=== PATIENT | female | born 1985 | race Two or more races ===

== ENCOUNTER 2018-03-29 13:31 | Emergency (ER) | payer SELFPAY ==
[2018-03-29] MEDS: IV NORMAL SALINE 1000ML BAG 1,000 ML IV (13:50)
[2018-03-29] MEDS: ONDANSETRON PF 4 MG/2 ML VIAL. IV (13:50)
[2018-03-29] MEDS: fentaNYL PF VIAL 100 MCG/2 ML VIAL IV (13:50)
[2018-03-29 13:53] LABS: ADD MAN DIFF? NO
[2018-03-29 13:54] LABS: URINE HCG POC HCG NEGATIVE (Negative)
[2018-03-29 13:58] LABS: BASO % 0 % (0-3); EOS % 0 % (0-3); HEMATOCRIT 37.9 % (36.0-47.0); LYMPH # 1.4 x10^3/uL (1.0-4.8); LYMPH % 12 % (24-48); MEAN CORPUSCULAR HEMOGLOBIN 29 pg (25-35); MEAN CORPUSCULAR HGB CONC 34 g/dL (31-37); MEAN CORPUSCULAR VOLUME 86 fL (79-100); MONO # 0.5 x10^3/uL (0.0-1.1); MONO % 4 % (0-9); NEUT # 10.1 x10^3uL (1.8-7.7); NEUT % 84 % (31-73); PLATELET COUNT 203 x10^3/uL (140-400); RED BLOOD COUNT 4.42 x10^6/uL (3.50-5.40); RED CELL DISTRIBUTION WIDTH 13.9 % (11.5-14.5); WHITE BLOOD COUNT 12.1 x10^3/uL (4.0-11.0)
[2018-03-29] MEDS ORDERED: CONTRAST GIVEN. MC (14:00)
[2018-03-29] MEDS ORDERED: IOHEXOL 300 MG/ML 100ML VIAL. IV (14:00)
[2018-03-29 14:12] LABS: ANION GAP 11 (6-14); BLOOD UREA NITROGEN 10 mg/dL (7-20); BUN/CREATININE RATIO 14 (6-20); CALCIUM 8.7 mg/dL (8.5-10.1); CARBON DIOXIDE 24 mmol/L (21-32); CHLORIDE 104 mmol/L (98-107); CREATININE 0.7 mg/dL (0.6-1.0); GFR 95.8; GLUCOSE 123 mg/dL (70-99); POTASSIUM 3.6 mmol/L (3.5-5.1); SODIUM 139 mmol/L (136-145)
[2018-03-29 14:13] LABS: ALK PHOS 64 U/L (46-116); ALT (SGPT) 19 U/L (14-59); AST (SGOT) 12 U/L (15-37); C-REACTIVE PROTEIN 2.4 mg/L (0-3.3); LIPASE 113 U/L (73-393); TOTAL BILIRUBIN 0.3 mg/dL (0.2-1.0); TOTAL PROTEIN 7.9 g/dL (6.4-8.2)
[2018-03-29 14:15] LABS: BILIRUBIN,URINE NEGATIVE (NEG); CLARITY,URINE CLEAR; COLOR,URINE YELLOW; GLUCOSE,URINE NEGATIVE (NEG); NITRITE,URINE NEGATIVE (NEG); PH,URINE 6.5; PROTEIN,URINE NEGATIVE (NEG-TRACE); RBC,URINE 0 /HPF (0-2); UROBILINOGEN,URINE 0.2 mg/dL (0.2 mg/dL)
[2018-03-29 14:16] LABS: BACTERIA,URINE 0 /HPF (0-FEW); SQUAMOUS EPITHELIAL CELL,UR OCC /LPF; WBC,URINE 0 /HPF (0-4)
[2018-03-29] MEDS: IOHEXOL 300 MG/ML 100ML VIAL. IV (14:32)
== END 2018-03-29 15:40 | disposition home or self-care (01) ==
LOC: ER 13:31
DX: D27.0 Benign neoplasm of right ovary (principal); R10.33 Periumbilical pain; Z88.5 Allergy status to narcotic agent
CPT/HCPCS: 36415; 74177; 80053; 81001; 81025; 83690; 85025; 86140; 96361; 96374; 96375; 99285-25; J2405; J3010; J7030; Q9967

== ENCOUNTER 2018-05-02 05:41 | Observation (INO) | payer SELFPAY ==
--- NOTE | 2018-05-01 15:25 | PREOP HP ---
DATE OF SERVICE: CHIEF COMPLAINT AND HISTORY OF PRESENT ILLNESS: This patient is a 32-year-old Nepali lady who is a 5, para 5 and she went to the hospital for abdominal pain and she was seen in the ER because of the abdominal pelvic pain and she did have a sonogram, which revealed a cyst in the ovary, which was complex and the patient also has periods, which are kind of heavier than before and sometimes, she has spotting and she does have irregular menstrual periods at times and she was referred because of the ovarian cyst and at the present time, she is scheduled for a laparotomy, left side salpingo-oophorectomy after she was seen in the office. ALLERGIES: SHE IS ALLERGIC TO MORPHINE. PAST MEDICAL HISTORY: Reveals no history of any other surgery. FAMILY HISTORY: Reveals no history of any cancer. She does have 3 sisters and no brothers. REVIEW OF SYSTEMS: Essentially negative. PHYSICAL EXAMINATION: GENERAL: The patient is obese. VITAL SIGNS: Weight 212 pounds, blood pressure 120/80. HEAD, EYES, EARS, NOSE, THROAT: Within normal limits. LUNGS: Clear. HEART: Sounds regular sinus rhythm. ABDOMEN: Feels soft. There is tenderness in the left adnexal area. PELVIC: Shows external genitalia being normal. Cervical os is closed. On bimanual exam, there is a mass palpable in the left side, which is tender to palpate. No vaginal bleeding noted at the time of the examination. EXTREMITIES: No edema of feet. 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 PLAN: Laparotomy, left side salpingo-oophorectomy. The details of the surgery, the risks, complications have been explained to the patient and the patient is willing for the operation at the present time. BRENDA ARMAS MD DR: CAIO/deidra JOB#: [id number] / [id number]
[2018-05-02] VITALS (8 sets, daily range): BP systolic 105–162; BP diastolic 60–80
[~2018-05-02] VITALS: Ht 165.1 cm; Wt 96.2 kg
[~2018-05-02 05:41] MED LIST: TRAM50TA PO
[2018-05-02 06:44] LABS: U PREG PATIENT NEGATIVE (NEG)
[2018-05-02] MEDS ORDERED: PANT20TA2 PO (06:46)
[2018-05-02 06:53] LABS: BASO % 0 % (0-3); EOS # 0.2 x10^3/uL (0.0-0.7); EOS % 3 % (0-3); HEMATOCRIT 36.4 % (36.0-47.0); HEMOGLOBIN 12.6 g/dL (12.0-15.5); LYMPH # 3.3 x10^3/uL (1.0-4.8); LYMPH % 46 % (24-48); MEAN CORPUSCULAR HEMOGLOBIN 29 pg (25-35); MEAN CORPUSCULAR HGB CONC 35 g/dL (31-37); MEAN CORPUSCULAR VOLUME 85 fL (79-100); MONO # 0.7 x10^3/uL (0.0-1.1); MONO % 9 % (0-9); NEUT # 3.1 x10^3uL (1.8-7.7); NEUT % 42 % (31-73); PLATELET COUNT 203 x10^3/uL (140-400); RED BLOOD COUNT 4.29 x10^6/uL (3.50-5.40); RED CELL DISTRIBUTION WIDTH 13.6 % (11.5-14.5); WHITE BLOOD COUNT 7.3 x10^3/uL (4.0-11.0)
[2018-05-02] MEDS ORDERED: SUCCINYLCHOLINE 200 MG/10 ML VIAL. ONE (06:59)
[2018-05-02] MEDS ORDERED: fentaNYL PF VIAL 100 MCG/2 ML VIAL ONE ×4 (06:59→10:31)
[2018-05-02] MEDS ORDERED: ROCURONIUM 50 MG/5 ML VIAL. ONE (06:59)
[2018-05-02] MEDS ORDERED: PROPOFOL 20 ML IV ONE (06:59)
[2018-05-02] MEDS ORDERED: LIDOCAINE 2% PF Vial for OR 5 ML VIAL. ONE (06:59)
[2018-05-02] MEDS ORDERED: IV RINGERS,LACTATED 1000ML 1,000 ML IV SCH (07:00)
[2018-05-02] MEDS ORDERED: ONDANSETRON PF 4 MG/2 ML VIAL. IV PRN ×2 (07:00→08:45)
[2018-05-02] MEDS ORDERED: PROCHLORPERAZINE 10 MG/2 ML VIAL. IV PRN (07:00)
[2018-05-02] MEDS ORDERED: LIDOCAINE 1% PF 2 ML VIAL. ID PRN (07:00)
[2018-05-02] MEDS ORDERED: fentaNYL PF VIAL 100 MCG/2 ML VIAL IV PRN (07:00)
[2018-05-02] MEDS ORDERED: DESFLURANE 61 TO 120 MINUTES IH ONE (07:46)
[2018-05-02] MEDS ORDERED: DEXAMETHASONE SOD PHOS 20 MG/5 ML VIAL. ONE (07:46)
[2018-05-02] MEDS ORDERED: NEOSTIGMINE METHYLSULFATE 5 MG/5 ML SYRINGE. ONE (08:04)
[2018-05-02] MEDS ORDERED: GLYCOPYRROLATE 1 MG/5 ML VIAL. ONE (08:04)
[2018-05-02] MEDS ORDERED: ONDANSETRON PF 4 MG/2 ML VIAL. ONE (08:04)
[2018-05-02] MEDS ORDERED: ePHEDrine PF IN SALINE 50 MG/5 ML DISP.SYRIN IV ONE (08:08)
[2018-05-02] MEDS ORDERED: ONDANSETRON PF 4 MG/2 ML VIAL. IV ONE (08:45)
[2018-05-02] MEDS ORDERED: IBUPROFEN 800 MG TABLET. PO PRN (08:45)
[2018-05-02] MEDS ORDERED: traMADol 50 MG TABLET PO PRN (08:45)
--- NOTE | 2018-05-02 08:45 | PDOC ---
GENERAL General: 32 yrs old scheduled for Laparotomy Left side Salpingoophorectomy. For Left Adnexal Mass and Pelvic pain. VITAL SIGNS Vital Signs: Vital Signs Date Time Temp Pulse Resp B/P (MAP) Pulse Ox O2 Delivery O2 Flow Rate FiO2 05/02/18 06:35 98.9 62 18 109/64 100 Room Air 98.9 ALLERGIES Allergies: Allergies Coded Allergies Type Severity Reaction Last Updated Verified morphine Allergy Intermediate rash 05/02/18 No MEDS Medications: Current Medications Medications (Trade) Dose Ordered Sig/Katrin Start Time Stop Time Status Last Admin Dose Admin Cefazolin Sodium/ Dextrose 50 ml @ 100 mls/hr 1X ONCE 05/02/18 06:00 05/02/18 06:29 DC 05/02/18 07:50 100 MLS/HR Desflurane (Suprane) 60 ml STK-MED ONCE 05/02/18 07:46 05/02/18 07:47 DC Dexamethasone Sodium Phosphate (Decadron) 20 mg STK-MED ONCE 05/02/18 07:46 05/02/18 07:47 DC Ephedrine Sulfate (ePHEDrine PF IN SALINE SYRINGE) 50 mg STK-MED ONCE 05/02/18 08:08 05/02/18 08:09 DC Fentanyl Citrate (Fentanyl 2ml Vial) 100 mcg STK-MED ONCE 05/02/18 06:59 05/02/18 07:00 DC Glycopyrrolate (Robinul) 1 mg STK-MED ONCE 05/02/18 08:04 05/02/18 08:05 DC Lidocaine HCl (Lidocaine Pf 2% Vial) 5 ml STK-MED ONCE 05/02/18 06:59 05/02/18 07:00 DC Lidocaine HCl (Xylocaine-Mpf 1% Vial) 2 ml PRN 1X PRN 05/02/18 07:00 05/03/18 06:59 Neostigmine Methylsulfate (Neostigmine Methylsulfate) 5 mg STK-MED ONCE 05/02/18 08:04 05/02/18 08:05 DC Ondansetron HCl (Zofran) 4 mg STK-MED ONCE 05/02/18 08:04 05/02/18 08:05 DC Prochlorperazine Edisylate (Compazine) 5 mg PACU PRN PRN 05/02/18 07:00 05/03/18 06:59 Propofol 20 ml @ As Directed STK-MED ONCE 05/02/18 06:59 05/02/18 07:00 DC Ringer's Solution 1,000 ml @ 30 mls/hr Q24H 05/02/18 07:00 05/02/18 18:59 05/02/18 06:43 30 MLS/HR Rocuronium [place] (Zemuron) 50 mg STK-MED ONCE 05/02/18 06:59 05/02/18 07:00 DC Succinylcholine Chloride (Anectine) 200 mg STK-MED ONCE 05/02/18 06:59 05/02/18 07:00 DC LAB Lab: Laboratory Tests Test 05/02/18 06:15 05/02/18 06:30 Urine Test Negative (NEG) White Blood Count 7.3 x10^3/uL (4.0-11.0) Red Blood Count 4.29 x10^6/uL (3.50-5.40) Hemoglobin 12.6 g/dL (12.0-15.5) Hematocrit 36.4 % (36.0-47.0) Mean Corpuscular Volume 85 fL (79-100) Mean Corpuscular Hemoglobin 29 pg (25-35) Mean Corpuscular Hemoglobin Concent 35 g/dL (31-37) Red Cell Distribution Width 13.6 % (11.5-14.5) Platelet Count 203 x10^3/uL (140-400) Neutrophils (%) (Auto) 42 % (31-73) Lymphocytes (%) (Auto) 46 % (24-48) Monocytes (%) (Auto) 9 % (0-9) Eosinophils (%) (Auto) 3 % (0-3) Basophils (%) (Auto) 0 % (0-3) Neutrophils # (Auto) 3.1 x10^3uL (1.8-7.7) Lymphocytes # (Auto) 3.3 x10^3/uL (1.0-4.8) Monocytes # (Auto) 0.7 x10^3/uL (0.0-1.1) Eosinophils # (Auto) 0.2 x10^3/uL (0.0-0.7) Basophils # (Auto) 0.0 x10^3/uL (0.0-0.2) ASSESSMENT & PLAN A&P Laparotomy and Left side Salpingoophorectomy. EBL 30cc. Pathologist has confirmed it is Left side Dermoid Cyst. BRENDA ARMAS MD May 02, 2018 08:45
[2018-05-02] MEDS ORDERED: PROCHLORPERAZINE 10 MG/2 ML VIAL. ONE (08:49)
[2018-05-02] MEDS: fentaNYL PF VIAL 100 MCG/2 ML VIAL IV PRN ×4 (08:54→09:48)
--- NOTE | 2018-05-02 09:12 | OP ---
DATE OF SURGERY: PREOPERATIVE DIAGNOSES: Left adnexal mass, pelvic pain, possible dermoid cyst of the ovary. POSTOPERATIVE DIAGNOSIS: Left side dermoid cyst of the ovary. OPERATION PERFORMED: Laparotomy, left side salpingo-oophorectomy. OPERATIVE PROCEDURE: The patient was taken to the operating room. Under general anesthesia, she was placed in a dorsal supine position. Womack catheter introduced in the bladder for continuous bladder drainage. Lower abdomen is prepped and draped in the usual manner. Pfannenstiel incision was made, abdomen opened in layers. Visualization of pelvic structures revealed slightly enlarged uterus. The right tube and ovary appears normal. The left side ovary is large, cystic and this was lifted out of the pelvis and the mesosalpinx as well as the broad ligament was doubly ligated and the left tube and ovary was removed and was given to the pathologist for visualization of the cyst and the pedicles on the left side was doubly ligated with 0 chromic catgut sutures without any problem and after this, there was no oozing or bleeding. The right tube and ovary appears normal and the abdomen closed in layers using continuous 0 chromic catgut sutures for the peritoneum, the muscle, the fascia. 3-0 plain continuous sutures applied for subcutaneous tissue, 3-0 Vicryl subcutaneous sutures were placed, a pressure dressing was given. The patient was sent to the recovery room in good condition. No complications encountered at time of the procedure. Estimated blood loss about 30 mL. Postoperative condition is stable. The pathologist did confirm it is a left side dermoid cyst of the left ovary. BRENDA ARMAS MD DR: CAIO/deidra JOB#: [id number] / [id number]
[2018-05-02] MEDS ORDERED: fentaNYL PF VIAL 100 MCG/2 ML VIAL IV ONE (10:45)
[2018-05-02] MEDS: IV NORMAL SALINE 1000ML BAG 1,000 ML IV SCH ×2 (11:15→18:20)
[2018-05-02] MEDS: KETOROLAC 30 MG/ML VIAL. IV PRN ×2 (11:23→19:43)
[2018-05-03] MEDS: IV NORMAL SALINE 1000ML BAG 1,000 ML IV SCH (01:59)
[2018-05-03 06:21] VITALS: BP 114/60
--- NOTE | 2018-05-03 07:41 | PDOC ---
GENERAL General: Patient feeling better. Likes to go home. VITAL SIGNS Vital Signs: Vital Signs Date Time Temp Pulse Resp B/P (MAP) Pulse Ox O2 Delivery O2 Flow Rate FiO2 05/03/18 06:21 98.1 63 16 114/60 (78) 96 Room Air 98.1 05/02/18 18:19 2.0 I & O I & O Intake and Output 05/03/18 07:00 Intake Total 2510 ml Output Total 4150 ml Balance -1640 ml Intake Oral 610 ml IV Total 1900 ml Output Urine Total 4150 ml ALLERGIES Allergies: Allergies Coded Allergies Type Severity Reaction Last Updated Verified morphine Allergy Intermediate rash 05/02/18 No MEDS Medications: Current Medications Medications (Trade) Dose Ordered Sig/Katrin Start Time Stop Time Status Last Admin Dose Admin Cefazolin Sodium/ Dextrose 50 ml @ 100 mls/hr 1X ONCE 05/02/18 06:00 05/02/18 06:29 DC 05/02/18 07:50 100 MLS/HR Desflurane (Suprane) 60 ml STK-MED ONCE 05/02/18 07:46 05/02/18 07:47 DC Dexamethasone Sodium Phosphate (Decadron) 20 mg STK-MED ONCE 05/02/18 07:46 05/02/18 07:47 DC Ephedrine Sulfate (ePHEDrine PF IN SALINE SYRINGE) 50 mg STK-MED ONCE 05/02/18 08:08 05/02/18 08:09 DC Fentanyl Citrate (Fentanyl 2ml Vial) 50 mcg 1X ONCE 05/02/18 10:45 05/02/18 10:46 DC 05/02/18 10:34 50 MCG Glycopyrrolate (Robinul) 1 mg STK-MED ONCE 05/02/18 08:04 05/02/18 08:05 DC Ibuprofen (Motrin) 800 mg PRN Q6HRS PRN 05/02/18 08:45 Ketorolac Tromethamine (Toradol) 30 mg PRN Q6HRS PRN 05/02/18 11:15 05/07/18 11:14 05/02/18 19:43 30 MG Lidocaine HCl (Lidocaine Pf 2% Vial) 5 ml STK-MED ONCE 05/02/18 06:59 05/02/18 07:00 DC Lidocaine HCl (Xylocaine-Mpf 1% Vial) 2 ml PRN 1X PRN 05/02/18 07:00 05/03/18 06:59 DC Neostigmine Methylsulfate (Neostigmine Methylsulfate) 5 mg STK-MED ONCE 05/02/18 08:04 05/02/18 08:05 DC Ondansetron HCl (Zofran) 4 mg PRN Q6HRS PRN 05/02/18 08:45 Prochlorperazine Edisylate (Compazine) 10 mg STK-MED ONCE 05/02/18 08:49 05/02/18 08:50 DC Propofol 20 ml @ As Directed STK-MED ONCE 05/02/18 06:59 05/02/18 07:00 DC Ringer's Solution 1,000 ml @ 30 mls/hr Q24H 05/02/18 07:00 05/02/18 18:59 DC 05/02/18 06:43 30 MLS/HR Rocuronium [place] (Zemuron) 50 mg STK-MED ONCE 05/02/18 06:59 05/02/18 07:00 DC Sodium Chloride 1,000 ml @ 125 mls/hr Q8H 05/02/18 11:15 05/03/18 01:59 125 MLS/HR Succinylcholine Chloride (Anectine) 200 mg STK-MED ONCE 05/02/18 06:59 05/02/18 07:00 DC Tramadol HCl (Ultram) 50 mg PRN Q6HRS PRN 05/02/18 08:45 05/02/18 18:19 50 MG ASSESSMENT & PLAN A&P Abdomen feels soft Incision healing ok. Explaied to patient operative findings. BRENDA ARMAS MD May 03, 2018 07:41
[2018-05-03] MEDS: KETOROLAC 30 MG/ML VIAL. IV PRN (09:16)
--- NOTE | 2018-05-06 12:29 | DS ---
DATE OF DISCHARGE: 05/03/2018 HOSPITAL COURSE: This patient is a 32-year-old Citizen Of [place] lady who is a 5, para 5, admitted to the hospital because of left adnexal mass and also left side ovarian cyst. 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 OBJECTIVE: VITAL SIGNS: Stable and she did undergo laparotomy, left side salpingo-oophorectomy under general anesthesia. The pathologist did confirm it was a dermoid cyst of the left ovary and postoperatively, she did well, no complications, and the patient was dismissed to home care on 05/03/2018 with the advice to come back to the office in 2 weeks for further postoperative care and treatment. DIAGNOSES: Pelvic pain, left adnexal mass, possible dermoid cyst. OPERATION PERFORMED: Laparotomy, left side salpingo-oophorectomy, left side dermoid cyst of the ovary. PLAN: She will be followed in the office in 2 weeks for the postop care and treatment. BRENDA ARMAS MD DR: CAIO/deidra JOB#: [id number] / [id number]
--- NOTE | 2018-05-07 16:10 | PATHOLOGY ---
[facility] Accession Number: [id number] . 01 Material submitted: . LEFT TUBE AND OVARY . 01 Clinical history: . None provided . 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 (SHA:horace; 05/07/2018) QMS/05/07/2018 . 02 Comment: No immature elements seen. . The frozen section was also reviewed by Dr. Javier Alcantar. . 02 Electronically signed: . Alex Licona MD, Pathologist NPI- [id number] . 01 Gross description: . The specimen is received fresh for intraoperative consultation and is designated "left tube and ovary". The specimen weighs 180 grams. This consists of an enlarged ovary with attached fallopian tube. The fallopian tube measures up to 7.5 cm in length. The serosal surface is pinkish brown and erythematous. There is a pedunculated paratubal cyst measuring up to 1.0 cm. The ovary measures 8.5 x 8.0 x 5.4 cm in greatest dimension. The capsular surface is vickers, smooth and glistening. Sectioning reveals a unilocular cyst containing yellow liquid sebaceous material and a small amount of hair. There is a vickers-white nodule of the cyst wall protruding into the cyst lumen measuring up to 1.5 cm. There is an eccentric remnant of what appears to be more normal appearing ovarian tissue measuring up to 2.5 cm. This contains several small cystic follicles. There are no solid areas suspicious for malignancy. (JPM:horace; 05/02/2018) . A1-A3: Heel Seat Trimmer ovarian cyst wall, with ovarian surface nodule in A1 A4: Entire interior surface nodule, bisected (following decalcification) A5: Uninvolved ovarian parenchyma, safety representative A6-A7: Fallopian tube, safety representative ([facility]; 05/03/2018) . . INTRAOPERATIVE CONSULTATION WITH GROSS IMPRESSION (Javier Alcantar MD) . Left fallopian tube and ovary, resection: -Dermoid cyst of ovary - no gross evidence of malignancy. . The results were reported to Dr. Elizabeth in the operating room. The specimen was fixed in formalin prior to additional sectioning. . Frozen section performed at [facility], [address] [place] [address]. XDC/XDC . 02 Pathologist provided ICD-10: D27.1 . 02 CPT . 620826, [id number] Performed at: [address], [place] [id number] MD Moe Nevarez MD Phone: [phone] Performed at: 02 [facility] [address] [place] [id number] MD Javier Alcantar MD Phone: [phone]
== END 2018-05-03 15:57 | disposition home or self-care (01) ==
LOC: SURG 05:41 → 3 NORTH 09:17
PROVIDERS: ADMIT Obstetrics & Gynecology; ATTEND Obstetrics & Gynecology
DX: D27.1 Benign neoplasm of left ovary (principal); R10.2 Pelvic and perineal pain; R19.09 Other intra-abdominal and pelvic swelling, mass and lump
CPT/HCPCS: 36415; 58720; 81025; 85025; 88307; 88311; 96374; 96376; G0378; G0379; J0330; J0690; J0780; J1100; J1885; J2001; J2405; J2704; J2710; J3010; J3490; J7030; J7120; A7015; A4461

== ENCOUNTER 2019-01-03 19:55 | Emergency (ER) | payer SELFPAY ==
[~2019-01-03] VITALS: Ht 165.1 cm; Wt 97.5 kg
[~2019-01-03 19:55] MED LIST changes: +PANT20TA2 PO
[2019-01-03 20:28] LABS: BILIRUBIN,URINE NEGATIVE (NEG); CLARITY,URINE CLEAR; COLOR,URINE YELLOW; NITRITE,URINE NEGATIVE (NEG); PROTEIN,URINE NEGATIVE (NEG-TRACE); UROBILINOGEN,URINE 0.2 mg/dL (0.2 mg/dL)
[2019-01-03] MEDS ORDERED: ONDANSETRON PF 4 MG/2 ML VIAL. IV ONE ×2 (20:30→22:00)
[2019-01-03] MEDS ORDERED: IV NORMAL SALINE 1000ML BAG 1,000 ML IV ONE (20:30)
[2019-01-03] MEDS ORDERED: FAMOTIDINE 20 MG/2 ML VIAL IVP ONE (20:30)
[2019-01-03] MEDS ORDERED: fentaNYL PF VIAL 100 MCG/2 ML VIAL IV ONE ×2 (20:30→22:30)
[2019-01-03 20:36] LABS: BASO % 0 % (0-3); EOS % 0 % (0-3); HEMATOCRIT 36.6 % (36.0-47.0); HEMOGLOBIN 12.1 g/dL (12.0-15.5); LYMPH # 1.6 x10^3/uL (1.0-4.8); LYMPH % 14 % (24-48); MEAN CORPUSCULAR HEMOGLOBIN 29 pg (25-35); MEAN CORPUSCULAR HGB CONC 33 g/dL (31-37); MEAN CORPUSCULAR VOLUME 87 fL (79-100); MONO # 0.4 x10^3/uL (0.0-1.1); MONO % 4 % (0-9); NEUT # 9.2 x10^3uL (1.8-7.7); NEUT % 82 % (31-73); PLATELET COUNT 217 x10^3/uL (140-400); RED BLOOD COUNT 4.22 x10^6/uL (3.50-5.40); RED CELL DISTRIBUTION WIDTH 13.5 % (11.5-14.5); WHITE BLOOD COUNT 11.2 x10^3/uL (4.0-11.0)
[2019-01-03 20:42] LABS: CALCIUM 8.7 mg/dL (8.5-10.1); CREATININE 0.7 mg/dL (0.6-1.0); GFR 95.2; POTASSIUM 3.6 mmol/L (3.5-5.1)
--- NOTE | 2019-01-03 20:43 | PHYS DOC ---
Past Medical History Past Medical History: Other Additional Past Medical Histor: "STOMACH ULCERS" Past Surgical History: Oophorectomy Past Surgical History Left oophorectomy and salpingectomy Alcohol Use: Rarely Drug Use: None Adult General Chief Complaint Chief Complaint: ABDOMINAL PAIN HPI HPI Patient is a 33 year old female who presents to the ED with abdominal pain. The pain is located in her umbilicus and right lower quadrant. She said was started at 5:30 PM, a few hours prior to her presentation to the ED. The pain started in her umbilicus and migrated to her right lower quadrant and throughout her whole abdominal cavity, then around both flanks into her back like a band. She rates the pain as a 10/10 stabbing pain. She took pantoprazole and tramadol and neither have helped. Lying flat on her back makes the pain worse. Lying on her right side seems to make the pain better. Review of Systems Review of Systems Constitutional: Denies fever or chills [] Eyes: Denies change in visual acuity, redness, or eye pain [] HENT: Denies nasal congestion or sore throat [] Respiratory: Denies cough or shortness of breath [] Cardiovascular: Denies chest pain or palpitations GI: Admits abdominal pain. Denies nausea, vomiting, bloody stools or diarrhea [] : Denies dysuria or hematuria [] Musculoskeletal: Admits back pain. Denies flank pain Integument: Denies rash or skin lesions [] Neurologic: Denies headache, focal weakness or sensory changes [] Complete systems were reviewed and found to be within normal limits, except as documented in this note. Current Medications Current Medications Current Medications Medications (Trade) Dose Ordered Sig/Katrin Start Time Stop Time Status Last Admin Dose Admin Famotidine (Pepcid Vial) 20 mg 1X ONCE 01/03/19 20:30 01/03/19 20:31 DC 01/03/19 20:30 20 MG Fentanyl Citrate (Fentanyl 2ml Vial) 50 mcg 1X ONCE 01/03/19 22:30 01/03/19 22:31 DC 01/03/19 21:55 50 MCG Info (CONTRAST GIVEN -- Rx MONITORING) 1 each PRN DAILY PRN 01/03/19 21:00 01/03/19 23:33 DC Iohexol (Omnipaque 300 Mg/ml) 75 ml 1X ONCE 01/03/19 20:45 01/03/19 20:46 DC 01/03/19 21:03 75 ML Ondansetron HCl (Zofran) 4 mg 1X ONCE 01/03/19 22:00 01/03/19 22:01 DC 01/03/19 21:46 4 MG Sodium Chloride 1,000 ml @ 1,000 mls/hr 1X ONCE 01/03/19 20:30 01/03/19 21:29 DC 01/03/19 20:30 1,000 MLS/HR Allergies Allergies Allergies Coded Allergies Type Severity Reaction Last Updated Verified morphine Allergy Intermediate rash 05/02/18 No Physical Exam Physical Exam Constitutional: Well developed, well nourished, non-toxic appearance. Patient groaning throughout entire encounter and lying lateral recumbent on her right side with reluctance to change position. HENT: Normocephalic, atraumatic, nose normal. [] Eyes: EOMI, conjunctiva normal, no discharge. [] Neck: Normal range of motion, no tenderness, supple, no stridor. [] Cardiovascular: Heart rate regular rhythm, no murmur [] Lungs & Thorax: Bilateral breath sounds clear to auscultation [] Abdomen: Bowel sounds normal, soft. Firm umbilicus. Sclerae that tenderness to palpation right lower quadrant. Positive McBurney's sign. Negative Barajas sign. Skin: Warm, dry, no erythema, no rash. [] Back: No tenderness, no CVA tenderness. [] Extremities: No tenderness, no cyanosis, no clubbing, ROM intact, no edema. [] Neurologic: Alert and oriented, normal motor function, normal sensory function, no focal deficits noted. [] Psychologic: Affect normal, judgement normal, mood normal. [] Current Patient Data Vital Signs Vital Signs Date Time Temp Pulse Resp B/P (MAP) Pulse Ox O2 Delivery O2 Flow Rate FiO2 01/03/19 22:45 71 18 98/57 (71) 97 Room Air 01/03/19 19:56 97.7 97.7 Lab Values Laboratory Tests Test 01/03/19 20:03 01/03/19 20:19 01/03/19 20:26 Urine Collection Type Unknown Urine Color Yellow Urine Clarity Clear Urine pH 7.0 Urine Specific Harman 1.025 Urine Protein Negative mg/dL (NEG-TRACE) Urine Glucose (UA) Negative mg/dL (NEG) Urine Ketones (Stick) Trace mg/dL (NEG) Urine Blood Trace (NEG) Urine Nitrite Negative (NEG) Urine Bilirubin Negative (NEG) Urine Urobilinogen Dipstick 0.2 mg/dL (0.2 mg/dL) Urine Leukocyte Esterase Negative (NEG) Urine RBC 3-5 /HPF (0-2) Urine WBC Occ /HPF (0-4) Urine Squamous Epithelial Cells Mod /LPF Urine Amorphous Sediment Present /HPF Urine Bacteria Few /HPF (0-FEW) Urine Mucus Mod /LPF POC Urine HCG, Qualitative Hcg negative (Negative) White Blood Count 11.2 x10^3/uL (4.0-11.0) H Red Blood Count 4.22 x10^6/uL (3.50-5.40) Hemoglobin 12.1 g/dL (12.0-15.5) Hematocrit 36.6 % (36.0-47.0) Mean Corpuscular Volume 87 fL (79-100) Mean Corpuscular Hemoglobin 29 pg (25-35) Mean Corpuscular Hemoglobin Concent 33 g/dL (31-37) Red Cell Distribution Width 13.5 % (11.5-14.5) Platelet Count 217 x10^3/uL (140-400) Neutrophils (%) (Auto) 82 % (31-73) H Lymphocytes (%) (Auto) 14 % (24-48) L Monocytes (%) (Auto) 4 % (0-9) Eosinophils (%) (Auto) 0 % (0-3) Basophils (%) (Auto) 0 % (0-3) Neutrophils # (Auto) 9.2 x10^3uL (1.8-7.7) H Lymphocytes # (Auto) 1.6 x10^3/uL (1.0-4.8) Monocytes # (Auto) 0.4 x10^3/uL (0.0-1.1) Eosinophils # (Auto) 0.0 x10^3/uL (0.0-0.7) Basophils # (Auto) 0.0 x10^3/uL (0.0-0.2) Sodium Level 140 mmol/L (136-145) Potassium Level 3.6 mmol/L (3.5-5.1) Chloride Level 103 mmol/L (98-107) Carbon Dioxide Level 24 mmol/L (21-32) Anion Gap 13 (6-14) Blood Urea Nitrogen 16 mg/dL (7-20) Creatinine 0.7 mg/dL (0.6-1.0) Estimated GFR (Cockcroft-Gault) 95.2 BUN/Creatinine Ratio 23 (6-20) H Glucose Level 132 mg/dL (70-99) H Lactic Acid Level 1.6 mmol/L (0.4-2.0) Calcium Level 8.7 mg/dL (8.5-10.1) Magnesium Level 2.0 mg/dL (1.8-2.4) Total Bilirubin 0.3 mg/dL (0.2-1.0) Aspartate Amino Transferase (AST) 16 U/L (15-37) Alanine Aminotransferase (ALT) 23 U/L (14-59) Alkaline Phosphatase 59 U/L (46-116) Total Protein 7.8 g/dL (6.4-8.2) Albumin 4.0 g/dL (3.4-5.0) Albumin/Globulin Ratio 1.1 (1.0-1.7) Lipase 96 U/L (73-393) Laboratory Tests 01/03/19 20:26 Laboratory Tests 01/03/19 20:26 EKG EKG [] Radiology/Procedures Radiology/Procedures PROCEDURE: CT ABD PELV W/ IV CONTRST ONLY EXAM: CT Abdomen and Pelvis with IV contrast CLINICAL HISTORY: RLQ pain and vomiting COMPARISON: 03/29/18 TECHNIQUE: Helical CT of the abdomen and pelvis was performed following the administration of intravenous contrast. Axial, coronal and sagittal reformatted images were generated. PQRS compliance statement - One or more of the following individualized dose reduction techniques were utilized for this study: 1. Automated exposure control 2. Adjustment of the mA and/or kV according to patient size 3. Use of iterative reconstruction technique FINDINGS: Lower chest: Medial right lower lobe calcified granuloma. Abdomen and Pelvis: No focal liver lesion. Spleen is unremarkable. Adrenal glands are normal. Pancreas is unremarkable. Gallbladder is normal. No biliary ductal dilatation. Symmetric nephrograms. No focal renal lesion. No hydronephrosis. Appendix is normal. A small section of small bowel is seen herniated into a ventral abdominal periumbilical hernia. No definite associated inflammatory changes are seen although the distal bowel appears decompressed. No abdominal or pelvic ascites. No abdominal or pelvic lymphadenopathy. No free intraperitoneal gas. Bones: Osseous structures are grossly unremarkable. IMPRESSION: 1. Appendix is normal. No evidence for acute appendicitis. 2. Small segment of distended small bowel is seen herniating into a periumbilical hernia. No associated periumbilical inflammatory changes are seen. Electronically signed by: Maurilio Ellison MD (01/03/2019 9:39 PM) [facility] Course & Med Decision Making Course & Med Decision Making Pertinent Labs and Imaging studies reviewed. (See chart for details) Patient is a 33-year-old female presents to the ED with abdominal pain that is primarily in the umbilicus and right lower quadrant that radiates around to her back bilaterally. Urine negative. CT abdomen showed an umbilical hernia with no signs of appendicitis. Lactate 1.6. UA showed no signs of infection. Hernia was reduced at bedside easily. Patient was instructed on how to reduce hernia herself at home if symptoms were to recur. Discharged patient to home in stable condition with Luara and Paulo and urged to follow up with PCP/general surgeon for elective hernia repair. Dragon Disclaimer Dragon Disclaimer This electronic medical record was generated, in whole or in part, using a voice recognition dictation system. Departure Departure Impression: Primary Impression: Umbilical hernia Disposition: 01 HOME, SELF-CARE Condition: IMPROVED Referrals: NO PCP (PCP) JINA MITCHELL MD Patient Instructions: Hernia, [id number] Scripts Ondansetron (ONDANSETRON ODT) 4 Mg Tab.rapdis 1 TAB PO PRN Q6-8HRS PRN for NAUSEA, #14 TAB Prov: PHIL CEDILLO DO 01/03/19 Hydrocodone/Apap 5-325 (NORCO 5-325 TABLET) 1 Each Tablet 0.5-1 TAB PO PRN Q6HRS PRN for PAIN, #10 TAB 0 Refills Prov: PHIL CEDILLO DO 01/03/19 Problem Qualifiers Primary Impression: Umbilical hernia Obstruction and gangrene presence: without obstruction or gangrene Qualified Codes: K42.9 - Umbilical hernia without obstruction or gangrene PHIL CEDILLO DO Jan 03, 2019 20:43
[2019-01-03] MEDS ORDERED: IOHEXOL 300 MG/ML 100ML VIAL. IV ONE (20:45)
[2019-01-03 20:48] LABS: ALBUMIN/GLOBULIN RATIO 1.1 (1.0-1.7); TOTAL BILIRUBIN 0.3 mg/dL (0.2-1.0); TOTAL PROTEIN 7.8 g/dL (6.4-8.2)
[2019-01-03 20:50] LABS: AMORPHOUS SEDIMENT,UR PRESENT /HPF; BACTERIA,URINE FEW /HPF (0-FEW); SQUAMOUS EPITHELIAL CELL,UR MOD /LPF; WBC,URINE OCC /HPF (0-4)
[2019-01-03] MEDS ORDERED: CONTRAST GIVEN. MC PRN (21:00)
--- NOTE | 2019-01-03 21:42 | RAD ---
EXAM: CT Abdomen and Pelvis with IV contrast CLINICAL HISTORY: RLQ pain and vomiting COMPARISON: 03/29/18 TECHNIQUE: Helical CT of the abdomen and pelvis was performed following the administration of intravenous contrast. Axial, coronal and sagittal reformatted images were generated. PQRS compliance statement - One or more of the following individualized dose reduction techniques were utilized for this study: 1. Automated exposure control 2. Adjustment of the mA and/or kV according to patient size 3. Use of iterative reconstruction technique FINDINGS: Lower chest: Medial right lower lobe calcified granuloma. Abdomen and Pelvis: No focal liver lesion. Spleen is unremarkable. Adrenal glands are normal. Pancreas is unremarkable. Gallbladder is normal. No biliary ductal dilatation. Symmetric nephrograms. No focal renal lesion. No hydronephrosis. Appendix is normal. A small section of small bowel is seen herniated into a ventral abdominal periumbilical hernia. No definite associated inflammatory changes are seen although the distal bowel appears decompressed. No abdominal or pelvic ascites. No abdominal or pelvic lymphadenopathy. No free intraperitoneal gas. Bones: Osseous structures are grossly unremarkable. IMPRESSION: 1. Appendix is normal. No evidence for acute appendicitis. 2. Small segment of distended small bowel is seen herniating into a periumbilical hernia. No associated periumbilical inflammatory changes are seen. Electronically signed by: Maurilio Ellison MD (01/03/2019 9:39 PM) [facility]
[2019-01-03 22:45] VITALS: BP 98/57
[2019-01-03] MEDS ORDERED: HYDR-3164 PO (23:16)
[2019-01-03] MEDS ORDERED: ONDA4TAB12 PO (23:18)
== END 2019-01-03 23:25 | disposition home or self-care (01) ==
LOC: ER 19:55
DX: K42.9 Umbilical hernia without obstruction or gangrene (principal); Z88.5 Allergy status to narcotic agent; Z90.721 Acquired absence of ovaries, unilateral
CPT/HCPCS: 36415; 74177; 80053; 81001; 81025; 83605; 83690; 83735; 85025; 96374; 96375; 96376; 99284; J2405; J3010; J3490; J7030; Q9967

== ENCOUNTER 2019-07-27 14:50 | Inpatient (IN) | payer SELFPAY ==
[~2019-07-27] VITALS: Ht 165.1 cm; Wt 86.2 kg
[~2019-07-27 14:50] MED LIST changes: +HYDR-3164 PO; +ONDA4TAB12 PO
[2019-07-27] MEDS ORDERED: IV NORMAL SALINE 1000ML BAG 1,000 ML IV SCH (15:50)
[2019-07-27 15:59] LABS: BASO % 0 % (0-3); EOS % 0 % (0-3); HEMATOCRIT 38.4 % (36.0-47.0); HEMOGLOBIN 13.1 g/dL (12.0-15.5); LYMPH # 2.1 x10^3/uL (1.0-4.8); LYMPH % 30 % (24-48); MEAN CORPUSCULAR HEMOGLOBIN 30 pg (25-35); MEAN CORPUSCULAR HGB CONC 34 g/dL (31-37); MEAN CORPUSCULAR VOLUME 86 fL (79-100); MONO # 0.5 x10^3/uL (0.0-1.1); MONO % 8 % (0-9); NEUT # 4.2 x10^3/uL (1.8-7.7); NEUT % 62 % (31-73); PLATELET COUNT 189 x10^3/uL (140-400); RED BLOOD COUNT 4.45 x10^6/uL (3.50-5.40); RED CELL DISTRIBUTION WIDTH 13.5 % (11.5-14.5); WHITE BLOOD COUNT 6.8 x10^3/uL (4.0-11.0)
[2019-07-27] MEDS ORDERED: ONDANSETRON PF 4 MG/2 ML VIAL. IV ONE ×2 (16:00→16:45)
[2019-07-27] MEDS ORDERED: FAMOTIDINE 20 MG/2 ML VIAL IVP ONE (16:00)
--- NOTE | 2019-07-27 16:02 | PHYS DOC ---
Past Medical History Past Medical History: Other Additional Past Medical Histor: CHRONIC ABDOMINAL PAIN, LEFT OVARIAN TERATOMA (LINSEY KEE APRN) Past Surgical History: Oophorectomy Additional Past Surgical Histo: LEFT OOPH TERATOMA (LINSEY KEE APRN) Alcohol Use: Rarely Drug Use: None (LINSEY KEE APRN) Adult General Chief Complaint Chief Complaint: ABDOMINAL PAIN IN HPI HPI Patient is a 33 year old female who presents with 11 weeks that ate chicken, beans, rice, and queso and began having umbilical abdominal pain that radiates to the left and around the back into the right around the back. No lower Jonas pain. Patient states she is nauseated. Denies diarrhea, vaginal discharge, vaginal bleeding, lower abdominal pain or cramping, dysuria. Patient goes to [facility] for her OB care. Patient states this is happened before and she has come to the hospital but does not remember what they told her because she was not listening. Patient is rating her pain a 8 out of 10 at this time. Patient states the pain feels like a pulling or a burning feeling. (LINSEY KEE APRN) Review of Systems Review of Systems GI: umbilical abdominal pain, nausea, vomiting, denies bloody stools or diarrhea [] All other systems were reviewed and found to be within normal limits, except as documented in this note. (LINSEY KEE APRN) Current Medications Current Medications Current Medications Medications (Trade) Dose Ordered Sig/Katrin Start Time Stop Time Status Last Admin Dose Admin Famotidine (Pepcid Vial) 20 mg 1X ONCE 07/27/19 16:00 07/27/19 16:01 DC 07/27/19 16:27 20 MG Fentanyl Citrate (Fentanyl 2ml Vial) 50 mcg 1X ONCE 07/27/19 18:45 07/27/19 18:48 DC 07/27/19 19:47 50 MCG Ondansetron HCl (Zofran) 4 mg 1X ONCE 07/27/19 16:45 07/27/19 16:46 DC 07/27/19 17:41 4 MG Sodium Chloride 1,000 ml @ 100 mls/hr Q10H 07/27/19 19:51 07/28/19 19:50 07/28/19 06:19 100 MLS/HR (MATT LARA MD) Allergies Allergies Allergies Coded Allergies Type Severity Reaction Last Updated Verified morphine Allergy Intermediate rash 05/02/18 No (MATT LARA MD) Physical Exam Physical Exam Constitutional: Well developed, well nourished, no acute distress, non-toxic appearance. [] Cardiovascular:Heart rate regular rhythm, no murmur [] Lungs & Thorax: Bilateral breath sounds clear to auscultation [] Abdomen: Bowel sounds normal, soft, umbilical tenderness, no masses, no pulsatile masses. [] Skin: Warm, dry, no erythema, no rash. [] Back: No tenderness, no CVA tenderness. [] Extremities: No tenderness, no cyanosis, no clubbing, ROM intact, no edema. [] Neurologic: Alert and oriented X 3, normal motor function, normal sensory function, no focal deficits noted. [] Psychologic: Affect normal, judgement normal, mood normal. [] (LINSEY KEE APRN) Current Patient Data Vital Signs Vital Signs Date Time Temp Pulse Resp B/P (MAP) Pulse Ox O2 Delivery O2 Flow Rate FiO2 07/27/19 19:47 16 99 07/27/19 19:30 62 123/66 (85) Room Air 07/27/19 15:20 98.3 98.3 (MATT LARA MD) Lab Values Laboratory Tests Test 07/27/19 15:45 White Blood Count 6.8 x10^3/uL (4.0-11.0) Red Blood Count 4.45 x10^6/uL (3.50-5.40) Hemoglobin 13.1 g/dL (12.0-15.5) Hematocrit 38.4 % (36.0-47.0) Mean Corpuscular Volume 86 fL (79-100) Mean Corpuscular Hemoglobin 30 pg (25-35) Mean Corpuscular Hemoglobin Concent 34 g/dL (31-37) Red Cell Distribution Width 13.5 % (11.5-14.5) Platelet Count 189 x10^3/uL (140-400) Neutrophils (%) (Auto) 62 % (31-73) Lymphocytes (%) (Auto) 30 % (24-48) Monocytes (%) (Auto) 8 % (0-9) Eosinophils (%) (Auto) 0 % (0-3) Basophils (%) (Auto) 0 % (0-3) Neutrophils # (Auto) 4.2 x10^3/uL (1.8-7.7) Lymphocytes # (Auto) 2.1 x10^3/uL (1.0-4.8) Monocytes # (Auto) 0.5 x10^3/uL (0.0-1.1) Eosinophils # (Auto) 0.0 x10^3/uL (0.0-0.7) Basophils # (Auto) 0.0 x10^3/uL (0.0-0.2) Maternal Serum HCG Beta Subunit 51812 mIU/mL (0-5) H Sodium Level 137 mmol/L (136-145) Potassium Level 3.4 mmol/L (3.5-5.1) L Chloride Level 103 mmol/L (98-107) Carbon Dioxide Level 22 mmol/L (21-32) Anion Gap 12 (6-14) Blood Urea Nitrogen 9 mg/dL (7-20) Creatinine 0.7 mg/dL (0.6-1.0) Estimated GFR (Cockcroft-Gault) 95.2 BUN/Creatinine Ratio 13 (6-20) Glucose Level 121 mg/dL (70-99) H Calcium Level 8.6 mg/dL (8.5-10.1) Total Bilirubin 0.3 mg/dL (0.2-1.0) Aspartate Amino Transferase (AST) 11 U/L (15-37) L Alanine Aminotransferase (ALT) 11 U/L (14-59) L Alkaline Phosphatase 51 U/L (46-116) Total Protein 7.6 g/dL (6.4-8.2) Albumin 3.5 g/dL (3.4-5.0) Albumin/Globulin Ratio 0.9 (1.0-1.7) L Lipase 154 U/L (73-393) Laboratory Tests 07/27/19 15:45 Laboratory Tests 07/27/19 15:45 (MATT LARA MD) Lab Values Laboratory Tests Test 07/27/19 15:45 White Blood Count 6.8 x10^3/uL (4.0-11.0) Red Blood Count 4.45 x10^6/uL (3.50-5.40) Hemoglobin 13.1 g/dL (12.0-15.5) Hematocrit 38.4 % (36.0-47.0) Mean Corpuscular Volume 86 fL (79-100) Mean Corpuscular Hemoglobin 30 pg (25-35) Mean Corpuscular Hemoglobin Concent 34 g/dL (31-37) Red Cell Distribution Width 13.5 % (11.5-14.5) Platelet Count 189 x10^3/uL (140-400) Neutrophils (%) (Auto) 62 % (31-73) Lymphocytes (%) (Auto) 30 % (24-48) Monocytes (%) (Auto) 8 % (0-9) Eosinophils (%) (Auto) 0 % (0-3) Basophils (%) (Auto) 0 % (0-3) Neutrophils # (Auto) 4.2 x10^3/uL (1.8-7.7) Lymphocytes # (Auto) 2.1 x10^3/uL (1.0-4.8) Monocytes # (Auto) 0.5 x10^3/uL (0.0-1.1) Eosinophils # (Auto) 0.0 x10^3/uL (0.0-0.7) Basophils # (Auto) 0.0 x10^3/uL (0.0-0.2) Maternal Serum HCG Beta Subunit 38005 mIU/mL (0-5) H Sodium Level 137 mmol/L (136-145) Potassium Level 3.4 mmol/L (3.5-5.1) L Chloride Level 103 mmol/L (98-107) Carbon Dioxide Level 22 mmol/L (21-32) Anion Gap 12 (6-14) Blood Urea Nitrogen 9 mg/dL (7-20) Creatinine 0.7 mg/dL (0.6-1.0) Estimated GFR (Cockcroft-Gault) 95.2 BUN/Creatinine Ratio 13 (6-20) Glucose Level 121 mg/dL (70-99) H Calcium Level 8.6 mg/dL (8.5-10.1) Total Bilirubin 0.3 mg/dL (0.2-1.0) Aspartate Amino Transferase (AST) 11 U/L (15-37) L Alanine Aminotransferase (ALT) 11 U/L (14-59) L Alkaline Phosphatase 51 U/L (46-116) Total Protein 7.6 g/dL (6.4-8.2) Albumin 3.5 g/dL (3.4-5.0) Albumin/Globulin Ratio 0.9 (1.0-1.7) L Lipase 154 U/L (73-393) Laboratory Tests 07/27/19 15:45 Laboratory Tests 07/27/19 15:45 (LINSEY KEE APRN) EKG EKG [] (LINSEY KEE APRN) Radiology/Procedures Radiology/Procedures [] (LINSEY KEE APRN) Impressions: [facility] [address] [place] [address] IMAGING REPORT Signed PATIENT: TINO LIZARRAGAACCOUNT: [id number] : 1985 LOCATION: ER AGE: 33 SEX: F EXAM STATUS: REG ER ORD. PHYSICIAN: LINSEY KEE APRN REASON: mid to upper abd pain; pain around umbilicus PROCEDURE: ABDOMEN COMPLETE COMPLETE ABDOMINAL ULTRASOUND Clinical History: Abdominal pain, nausea, and vomiting. 11 weeks . Comparison: CT abdomen and pelvis with contrast January 03, 2019. Technique: Sonographic examination of the abdomen was performed and multiple grayscale and color Doppler static images were obtained. Findings: Most of the liver is visualized and is homogeneous. The liver measures 15.1 cm. Ultrasound is not sensitive for detecting solid liver lesions. The common bile duct is normal in caliber, measuring 2 mm in diameter. The gallbladder wall is normal. Per report, sonographic Barajas sign is positive. There are several mobile gallstones measuring up to 13 mm. There is no pericholecystic fluid. The visualized pancreas is homogeneous. The right kidney is normal in echotexture and measures 10.2 cm. Left kidney an spleen are not well seen due to overlying bowel gas. The left kidney measures 11.9 cm. here is no obvious hydronephrosis. The spleen is not enlarged, measuring 10 cm. Visualized portions of the abdominal aorta and IVC are normal. IMPRESSION: Cholelithiasis. Sonographic Barajas sign is positive. There is no gallbladder wall thickening. Electronically signed by: Joseph Andres MD (07/27/2019 5:12 PM) [facility] DICTATED and SIGNED BY: JOSEPH ANDRES MD DATE: 07/27/19 171 [facility] [address] [place] [address] IMAGING REPORT Signed PATIENT: TINO LIZARRAGAACCOUNT: [id number] : 1985 LOCATION: ER AGE: 33 SEX: F EXAM STATUS: REG ER ORD. PHYSICIAN: LINSEY KEE APRN REASON: mid to upper abd pain; pain around umbiblicus; nausea,vomitting PROCEDURE: OB <14 WKS W/TV OB <14 WKS W/TV Clinical Indication: Abdominal pain, nausea, vomiting. Pain around umbilicus. Patient is . Comparison: CT abdomen and pelvis with contrast January 03, 2019. TECHNIQUE: Real-time ultrasound imaging of the pelvis using transabdominal window is performed. Findings: Uterus measures 12.6 x 9.3 x 7 cm. The cervix length is approximately 4 cm. There is intrauterine gestational sac, contour is smooth. No perigestational hemorrhage. pole is identified. No yolk sac is seen. Estimated heart rate 147 bpm. [place]-rump length 4.7 cm, 11 weeks and 3 days. EDC ultrasound is February 12, 2020. The maternal ovaries are not identified perhaps due to overlying bowel gas. At the umbilicus, there is an umbilical hernia. The hernia contains a cystic structure measuring 3 x 2.8 x 2.9 cm. This cystic structure may be a loop of small bowel as was seen on prior CT. IMPRESSION: 1. Single live intrauterine gestation, estimated sonographic gestational age 11 weeks and 3 days. 2. There is umbilical hernia containing a cystic structure that may be a dilated small bowel loop as was seen on prior CT. Whether hernia is incarcerated should be determined clinically. Electronically signed by: Joseph Andres MD (07/27/2019 5:43 PM) [facility] DICTATED and SIGNED BY: JOSEPH ANDRES MD DATE: 07/27/19 060 (LINSEY KEE APRN) Course & Med Decision Making Course & Med Decision Making Abdomen is is soft but tender at the umbilicus. There is umbilical hernia that can be felt that is the size of a grape, soft. It can be pushed in but pops back out. Patient denies constipation or diarrhea, chest pain, shortness of air headache, dizziness, syncope. No lower abdominal pain palpation. Alert and oriented. Skin pink warm and dry. Vital signs within normal limits. No extremity swelling. Patient is ambulatory with a steady gait. Patient has a history of umbilical hernia and ovarian cysts. A clear to auscultation all lobes. Patient states this is #6. No cva tenderness. US shows: 1. Single live intrauterine gestation, estimated sonographic gestational age 11 weeks and 3 days. 2. There is umbilical hernia containing a cystic structure that may be a dilated small bowel loop as was seen on prior CT. Whether hernia is incarcerated should be determined clinically. 1. Cholelithiasis. Sonographic Barajas sign is positive. There is no gallbladder wall thickening. Patient is still in a large amount of pain. Patient states she's no nausea this time. Given her another dose of fentanyl. I've spoken to Dr. Elizabeth of OB and let her know about the patient. She states the patient needs to be admitted under general surgery. I've spoken to Dr. Loo of Gen. surgery and he states that he will be happy to see her as a consult but they do not admit women with gallstones. I've spoken to Dr. Elizabeth of OB and she has agreed to admit the patient and Dr. Loo is consulted. (LINSEY KEE APRN) Course & Med Decision Making Staff Physician Addendum: I was working in the ER during the course of this patient's visit. I was available for consultation as needed, but I was not directly involved in the care of this patient. (MATT LARA MD) Dragon Disclaimer Dragon Disclaimer This electronic medical record was generated, in whole or in part, using a voice recognition dictation system. (LINSEY KEE APRN) Departure Departure Impression: Primary Impression: Cholelithiasis affecting in first trimester, antepartum Disposition: 09 ADMITTED INPATIENT Admitting Physician: FAITH (LINSEY KEE APRN) Condition: STABLE Referrals: NO PCP (PCP) LINSEY KEE APRN Jul 27, 2019 16:02 MATT LARA MD Jul 28, 2019 07:29
[2019-07-27 16:06] LABS: CALCIUM 8.6 mg/dL (8.5-10.1); CREATININE 0.7 mg/dL (0.6-1.0); GFR 95.2; POTASSIUM 3.4 mmol/L (3.5-5.1)
[2019-07-27 16:12] LABS: ALBUMIN 3.5 g/dL (3.4-5.0); ALBUMIN/GLOBULIN RATIO 0.9 (1.0-1.7); TOTAL BILIRUBIN 0.3 mg/dL (0.2-1.0); TOTAL PROTEIN 7.6 g/dL (6.4-8.2)
[2019-07-27] MEDS ORDERED: fentaNYL PF VIAL 100 MCG/2 ML VIAL IVP ONE ×2 (16:45→18:45)
--- NOTE | 2019-07-27 17:15 | RAD ---
COMPLETE ABDOMINAL ULTRASOUND Clinical History: Abdominal pain, nausea, and vomiting. 11 weeks . Comparison: CT abdomen and pelvis with contrast January 03, 2019. Technique: Sonographic examination of the abdomen was performed and multiple grayscale and color Doppler static images were obtained. Findings: Most of the liver is visualized and is homogeneous. The liver measures 15.1 cm. Ultrasound is not sensitive for detecting solid liver lesions. The common bile duct is normal in caliber, measuring 2 mm in diameter. The gallbladder wall is normal. Per report, sonographic Barajas sign is positive. There are several mobile gallstones measuring up to 13 mm. There is no pericholecystic fluid. The visualized pancreas is homogeneous. The right kidney is normal in echotexture and measures 10.2 cm. Left kidney an spleen are not well seen due to overlying bowel gas. The left kidney measures 11.9 cm. here is no obvious hydronephrosis. The spleen is not enlarged, measuring 10 cm. Visualized portions of the abdominal aorta and IVC are normal. IMPRESSION: Cholelithiasis. Sonographic Barajas sign is positive. There is no gallbladder wall thickening. Electronically signed by: Joseph Andres MD (07/27/2019 5:12 PM) [facility]
--- NOTE | 2019-07-27 17:46 | RAD ---
OB <14 WKS W/TV Clinical Indication: Abdominal pain, nausea, vomiting. Pain around umbilicus. Patient is . Comparison: CT abdomen and pelvis with contrast January 03, 2019. TECHNIQUE: Real-time ultrasound imaging of the pelvis using transabdominal window is performed. Findings: Uterus measures 12.6 x 9.3 x 7 cm. The cervix length is approximately 4 cm. There is intrauterine gestational sac, contour is smooth. No perigestational hemorrhage. pole is identified. No yolk sac is seen. Estimated heart rate 147 bpm. [place]-rump length 4.7 cm, 11 weeks and 3 days. EDC ultrasound is February 12, 2020. The maternal ovaries are not identified perhaps due to overlying bowel gas. At the umbilicus, there is an umbilical hernia. The hernia contains a cystic structure measuring 3 x 2.8 x 2.9 cm. This cystic structure may be a loop of small bowel as was seen on prior CT. IMPRESSION: 1. Single live intrauterine gestation, estimated sonographic gestational age 11 weeks and 3 days. 2. There is umbilical hernia containing a cystic structure that may be a dilated small bowel loop as was seen on prior CT. Whether hernia is incarcerated should be determined clinically. Electronically signed by: Joseph Andres MD (07/27/2019 5:43 PM) [facility]
[2019-07-27] MEDS ORDERED: ONDANSETRON PF 4 MG/2 ML VIAL. IV PRN (20:00)
[2019-07-27 20:50] VITALS: BP 130/89
--- NOTE | 2019-07-27 20:50 | NUR ---
The patient, TINO LIZARRAGA, 33 y/o, F admitted by BRENDA ARMAS MD, was given written information regarding hospital policies, unit procedures and contact persons. Valuables were checked and left with her.
[2019-07-27] MEDS: fentaNYL PF VIAL 100 MCG/2 ML VIAL IV PRN ×2 (20:54→23:47)
[2019-07-27] MEDS: IV NORMAL SALINE 1000ML BAG 1,000 ML IV SCH (21:01)
[2019-07-27] MEDS ORDERED: ZOLPIDEM 5 MG TABLET. PO PRN (21:30)
[2019-07-27] MEDS ORDERED: hydrOXYzine IM 50 MG/ML VIAL IM PRN (21:30)
[2019-07-27 23:01] VITALS: BP 134/78
[2019-07-28 03:00] VITALS: BP 129/71
[2019-07-28] MEDS: IV NORMAL SALINE 1000ML BAG 1,000 ML IV SCH (06:19)
[2019-07-28 10:11] VITALS: BP 126/76
--- NOTE | 2019-07-28 11:55 | PDOC2 ---
CONSULT Date of Consult Date of Consult DATE: 07/28/19 TIME: 11:50 Reason for Consult Reason for Consult: abdominal pain History of Present Illness Reason for Visit: The patient is a 33 year old female to reported to the ER due to abdominal pain. The pain began yesterday and was located near the mid abdomen with radiation to the back. She had associated nausea and vomiting. She had on e prior episode of similar pain in November. The patient is also 11 weeks . Past Medical History Past Medical History denies Past Surgical History Past Surgical History ovarian procedure Social History No Lives: with Family Current Problem List Problem List Problems Medical Problems: (1) Cholelithiasis affecting in first trimester, antepartum Status: Acute Current Medications Current Medications Current Medications Sodium Chloride 1,000 ml @ 1,000 mls/hr Q1H IV Last administered on 07/27/19at 16:24; Start 07/27/19 at 15:50; Stop 07/27/19 at 16:49; Status DC Ondansetron HCl (Zofran) 4 mg 1X ONCE IV Last administered on 07/27/19at 16:26; Start 07/27/19 at 16:00; Stop 07/27/19 at 16:01; Status DC Famotidine (Pepcid Vial) 20 mg 1X ONCE IVP Last administered on 07/27/19at 16:27; Start 07/27/19 at 16:00; Stop 07/27/19 at 16:01; Status DC Fentanyl Citrate (Fentanyl 2ml Vial) 50 mcg 1X ONCE IVP Last administered on 07/27/19at 17:42; Start 07/27/19 at 16:45; Stop 07/27/19 at 16:46; Status DC Ondansetron HCl (Zofran) 4 mg 1X ONCE IV Last administered on 07/27/19at 17:41; Start 07/27/19 at 16:45; Stop 07/27/19 at 16:46; Status DC Fentanyl Citrate (Fentanyl 2ml Vial) 50 mcg 1X ONCE IVP Last administered on 07/27/19at 19:47; Start 07/27/19 at 18:45; Stop 07/27/19 at 18:48; Status DC Ondansetron HCl (Zofran) 4 mg PRN Q8HRS PRN IV NAUSEA/VOMITING; Start 07/27/19 at 20:00; Stop 07/28/19 at 19:59 Fentanyl Citrate (Fentanyl 2ml Vial) 50 mcg PRN Q1HR PRN IV PAIN Last administered on 07/27/19at 23:47; Start 07/27/19 at 20:00; Stop 07/28/19 at 19:59 Sodium Chloride 1,000 ml @ 100 mls/hr Q10H IV Last administered on 07/28/19at 06:19; Start 07/27/19 at 19:51; Stop 07/28/19 at 19:50 Hydroxyzine HCl (Vistaril Im) 50 mg PRN Q4HRS PRN IM ITCHING Last administered on 07/27/19at 23:10; Start 07/27/19 at 21:30 Zolpidem Tartrate (Ambien) 5 mg PRN QHS PRN PO INSOMNIA Last administered on 07/27/19at 23:14; Start 07/27/19 at 21:30 Active Scripts Active Ondansetron Odt (Ondansetron) 4 Mg Tab.rapdis 1 Tab PO PRN Q6-8HRS PRN [place] 5-325 Tablet (Acetaminophen/Hydrocodone Bitart) 1 Each Tablet 0.5-1 Tab PO PRN Q6HRS PRN Tramadol Hcl 50 Mg Tablet 50-100 Mg PO Q6HRS PRN Reported Protonix (Pantoprazole Sodium) 20 Mg Tablet. 1 Tab PO DAILY Allergies Allergies: Coded Allergies: morphine (Unverified Allergy, Intermediate, rash, 05/02/18) ROS General: No: Chills, Night Sweats, Fatigue, Malaise, Appetite, Other PSYCHOLOGICAL ROS: No: Anxiety, Behavioral Disorder, Concentration difficultie, Decreased libido, Depression, Disorientation, Hallucinations, Hostility, Irritablity, Memory difficulties, Mood Swings, Obsessive thoughts, Physical abuse, Sexual abuse, Sleep disturbances, Suicidal ideation, Other Eyes: No Blurry vision, No Decreased vision, No Double vision, No Dry eyes, No Excessive tearing, No Eye Pain, No Itchy Eyes, No Loss of vision, No Photophobia, No Scotomata, No Uses contacts, No Uses glasses, No Other HEENT: No: Heacaches, Visual Changes, Hearing change, Nasal congestion, Nasal discharge, Oral lesions, Sinus pain, Sore Throat, Epistaxis, Sneezing, Snoring, Tinnitus, Vertigo, Vocal changes, Other ALLERGY AND IMMUNOLOGY: No: Hives, Insect Bite Sensitivity, Itchy/Watery Eyes, Nasal Congestion, Post Nasal Drip, Seasonal Allergies, Other Hematological and Lymphatic: No: Bleeding Problems, Blood Clots, Blood Transfusions, Brusing, Night Sweats, Pallor, Swollen Lymph Nodes, Other ENDOCRINE: No: Breast Changes, Galactorrhea, Hair Pattern Changes, Hot Flashes, Malaise/lethargy, Mood Swings, Palpitations, Polydipsia/polyuria, Skin Changes, Temperature Intolerance, Unexpected Weight Changes, Other Respiratory: No: Cough, Hemoptysis, Orthopnea, Pleuritic Pain, Shortness of breath, SOB with excertion, Sputum Changes, Stridor, Tachypnea, Wheezing, Other Cardiovascular: No Chest Pain, No Palpitations, No Orthopnea, No Paroxysmal Noc. Dyspnea, No Edema, No Lt Headedness, No Other Gastrointestinal: Yes Nausea, Yes Vomiting, Yes Abdominal Pain Genitourinary: No Dysuria, No Frequency, No Incontinence, No Hematuria, No Retention, No Discharge, No Urgency, No Pain, No Flank Pain, No Other, No , No , No , No , No , No , No Musculoskeletal: No Gait Disturbance, No Joint Pain, No Joint Stiffness, No Joint Swelling, No Muscle Pain, No Muscular Weakness, No Pain In:, No Swelling In:, No Other Neurological: No Behavorial Changes, No Bowel/Bladder ControlChng, No Confusion, No Dizziness, No Gait Disturbance, No Headaches, No Impaired Coord/balance, No Memory Loss, No Numbness/Tingling, No Seizures, No Speech Problems, No Tremors, No Visual Changes, No Weakness, No Other Skin: No Dry Skin, No Eczema, No Hair Changes, No Lumps, No Mole Changes, No Mottling, No Nail Changes, No Pruritus, No Rash, No Skin Lesion Changes, No Other, No Acne Physical Exam General: Alert, Oriented X3, Cooperative HEENT: Atraumatic Lungs: Clear to auscultation Heart: Regular rate Abdomen: Soft, No tenderness (reducible umbilical hernia) Extremities: No clubbing, No cyanosis Skin: No rashes Neuro: Normal speech, Strength at 5/5 X4 ext Psych/Mental Status: Mental status NL MUSCULOSKELETAL: No joint tenderness, No deformity Vitals VITALS Vital Signs Date Time Temp Pulse Resp B/P (MAP) Pulse Ox O2 Delivery O2 Flow Rate FiO2 07/28/19 10:11 98.3 70 126/76 (93) 98 Room Air 98.3 07/28/19 03:00 18 Labs Labs Laboratory Tests Test 07/27/19 15:45 White Blood Count 6.8 x10^3/uL (4.0-11.0) Red Blood Count 4.45 x10^6/uL (3.50-5.40) Hemoglobin 13.1 g/dL (12.0-15.5) Hematocrit 38.4 % (36.0-47.0) Mean Corpuscular Volume 86 fL (79-100) Mean Corpuscular Hemoglobin 30 pg (25-35) Mean Corpuscular Hemoglobin Concent 34 g/dL (31-37) Red Cell Distribution Width 13.5 % (11.5-14.5) Platelet Count 189 x10^3/uL (140-400) Neutrophils (%) (Auto) 62 % (31-73) Lymphocytes (%) (Auto) 30 % (24-48) Monocytes (%) (Auto) 8 % (0-9) Eosinophils (%) (Auto) 0 % (0-3) Basophils (%) (Auto) 0 % (0-3) Neutrophils # (Auto) 4.2 x10^3/uL (1.8-7.7) Lymphocytes # (Auto) 2.1 x10^3/uL (1.0-4.8) Monocytes # (Auto) 0.5 x10^3/uL (0.0-1.1) Eosinophils # (Auto) 0.0 x10^3/uL (0.0-0.7) Basophils # (Auto) 0.0 x10^3/uL (0.0-0.2) Maternal Serum HCG Beta Subunit 76701 mIU/mL (0-5) Sodium Level 137 mmol/L (136-145) Potassium Level 3.4 mmol/L (3.5-5.1) Chloride Level 103 mmol/L (98-107) Carbon Dioxide Level 22 mmol/L (21-32) Anion Gap 12 (6-14) Blood Urea Nitrogen 9 mg/dL (7-20) Creatinine 0.7 mg/dL (0.6-1.0) Estimated GFR (Cockcroft-Gault) 95.2 BUN/Creatinine Ratio 13 (6-20) Glucose Level 121 mg/dL (70-99) Calcium Level 8.6 mg/dL (8.5-10.1) Total Bilirubin 0.3 mg/dL (0.2-1.0) Aspartate Amino Transf (AST/SGOT) 11 U/L (15-37) Alanine Aminotransferase (ALT/SGPT) 11 U/L (14-59) Alkaline Phosphatase 51 U/L (46-116) Total Protein 7.6 g/dL (6.4-8.2) Albumin 3.5 g/dL (3.4-5.0) Albumin/Globulin Ratio 0.9 (1.0-1.7) Lipase 154 U/L (73-393) Laboratory Tests Test 07/27/19 15:45 White Blood Count 6.8 x10^3/uL (4.0-11.0) Red Blood Count 4.45 x10^6/uL (3.50-5.40) Hemoglobin 13.1 g/dL (12.0-15.5) Hematocrit 38.4 % (36.0-47.0) Mean Corpuscular Volume 86 fL (79-100) Mean Corpuscular Hemoglobin 30 pg (25-35) Mean Corpuscular Hemoglobin Concent 34 g/dL (31-37) Red Cell Distribution Width 13.5 % (11.5-14.5) Platelet Count 189 x10^3/uL (140-400) Neutrophils (%) (Auto) 62 % (31-73) Lymphocytes (%) (Auto) 30 % (24-48) Monocytes (%) (Auto) 8 % (0-9) Eosinophils (%) (Auto) 0 % (0-3) Basophils (%) (Auto) 0 % (0-3) Neutrophils # (Auto) 4.2 x10^3/uL (1.8-7.7) Lymphocytes # (Auto) 2.1 x10^3/uL (1.0-4.8) Monocytes # (Auto) 0.5 x10^3/uL (0.0-1.1) Eosinophils # (Auto) 0.0 x10^3/uL (0.0-0.7) Basophils # (Auto) 0.0 x10^3/uL (0.0-0.2) Maternal Serum HCG Beta Subunit 76524 mIU/mL (0-5) Sodium Level 137 mmol/L (136-145) Potassium Level 3.4 mmol/L (3.5-5.1) Chloride Level 103 mmol/L (98-107) Carbon Dioxide Level 22 mmol/L (21-32) Anion Gap 12 (6-14) Blood Urea Nitrogen 9 mg/dL (7-20) Creatinine 0.7 mg/dL (0.6-1.0) Estimated GFR (Cockcroft-Gault) 95.2 BUN/Creatinine Ratio 13 (6-20) Glucose Level 121 mg/dL (70-99) Calcium Level 8.6 mg/dL (8.5-10.1) Total Bilirubin 0.3 mg/dL (0.2-1.0) Aspartate Amino Transf (AST/SGOT) 11 U/L (15-37) Alanine Aminotransferase (ALT/SGPT) 11 U/L (14-59) Alkaline Phosphatase 51 U/L (46-116) Total Protein 7.6 g/dL (6.4-8.2) Albumin 3.5 g/dL (3.4-5.0) Albumin/Globulin Ratio 0.9 (1.0-1.7) Lipase 154 U/L (73-393) Images Images Sonogram: Gallstones without wall thickening, umbilical hernia Assessment/Plan Assessment/Plan 33 year old female, 11 weeks , mid abdominal pain, gallstones noted on sonogram. Her symptoms seem more centered at the umbilicus with no RUQ pain. She currently is nontender, and the hernia is reducible. I discussed with the patient surgical options for gallstones and the umbilical hernia. Generally would prefer to hold off on surgery until no longer due to risk. She and her understand and are agreeable. Plan to start regular diet. OK from my standpoint to discharge, my office number was given to the patient and they are encouraged to FU with me as outpt in the office, particulary after delivery of her child. JENNY RAMON MD Jul 28, 2019 11:55
[2019-07-28 14:00] VITALS: BP 132/80
[2019-07-28] MEDS ORDERED: ACETAMINOPHEN 325 MG TABLET. PO PRN (16:45)
[2019-07-28] MEDS ORDERED: ONDANSETRON PF 4 MG/2 ML VIAL. IVP PRN (16:45)
[2019-07-28 17:45] VITALS: BP 124/72
--- NOTE | 2019-07-28 18:49 | NUR ---
pt denies nausea vomitting, states little tender to umbilical area due to hernia. no heartburn noted denies need for pain meds. shower takes 100%
[2019-07-28 20:00] VITALS: BP 99/43
[2019-07-29 06:00] VITALS: BP 99/63
[2019-07-29 08:00] VITALS: BP 117/53
--- NOTE | 2019-07-29 13:52 | PDOC ---
GENERAL General: Patient feeling better Likes to go home. VITAL SIGNS Vital Signs/I&O: Vital Signs Date Time Temp Pulse Resp B/P (MAP) Pulse Ox O2 Delivery O2 Flow Rate FiO2 07/29/19 08:00 98.1 54 18 117/53 (74) 96 Room Air 98.1 I & O 07/28/19 07/28/19 07/29/19 15:00 23:00 07:00 Intake Total 220 ml 340 ml 400 ml Output Total 0 ml Balance 220 ml 340 ml 400 ml ALLERGIES Allergies: Allergies Coded Allergies Type Severity Reaction Last Updated Verified morphine Allergy Intermediate rash 05/02/18 No ASSESSMENT & PLAN A&P Patient to go home today. She needs to call [facility] and setup Appointment for Followup care. BRENDA ARMAS MD Jul 29, 2019 13:52
[2019-07-29 14:20] VITALS: BP 109/62
--- NOTE | 2019-07-29 14:25 | NUR ---
Discharge and follow up instructions given to patient. Saline lock dcd and pt ambulated out of the unit with her family by her side.
== END 2019-07-29 14:25 | disposition home or self-care (01) | DRG 833 ==
LOC: ER 14:50 → 3 NORTH 19:53
PROVIDERS: ADMIT Obstetrics & Gynecology; ATTEND Obstetrics & Gynecology
DX: O99.611 Diseases of the digestive system complicating pregnancy, first trimester (principal); O26.611 Liver and biliary tract disorders in pregnancy, first trimester; K80.20 Calculus of gallbladder without cholecystitis without obstruction; K42.9 Umbilical hernia without obstruction or gangrene; G89.29 Other chronic pain; Z88.8 Allergy status to other drugs, medicaments and biological substances; Z3A.11 11 weeks gestation of pregnancy
CPT/HCPCS: 36415; 76700; 76801; 76817; 80053; 83690; 84702; 85025; 86850; 86900; 86901; 96361; 96374; 96375; 96376; J2405; J3010; J3410; J3490; J7030; 99285-25; G0378